=== PATIENT | female | born 2005 | race Caucasian/White ===

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

== ENCOUNTER 2023-06-29 23:06 | Emergency (ER) | payer OTHER, SELFPAY ==
--- NOTE | ~2023-06-29 | CT_ITS ---
IMPRESSION: 1. Small volume of pelvic ascites, likely an exudate. 2. Fat stranding in greater omentum on the left, consistent with inflammation v ersus edema. EXAMINATION: CT abdomen pelvis w con DATE: 06/30/2023 04:22 INDICATION: Right lower quadrant abdominal pain. Diarrhea. TECHNIQUE: Computed tomography (CT) of the abdomen and pelvis was performed with 100 mL Omnipaque 350 intravenous contrast. Automated exposure control and iterative reconstruction technique were employe d. The dose-length product was 434.72 mGy-cm. COMPARISON: CT abdomen and pelvis 03/16/2018 FINDINGS: The visualized portions of lung bases demonstrate minimal atelectasis. No pleural effusion. The heart size is normal. No pericardial effusion. The liver, gallbladder, spleen, pancreas, adrenal glands, and kidneys are normal. There is a small volume of pelvic ascites with peritoneal enhancemen t, likely an exudate. There is fat stranding in greater omentum on the left. There are no dilated loo ps of bowel. The appendix is normal. There are no pathologically enlarged lymph nodes. There is mild chronic anterior wedging of T11 vertebral body. IMPRESSION: 1. Small volume of pelvic ascites, likely an exudate. 2. Fat stranding in greater omentum on the left, consistent with inflammation versus edema. Reviewed, dictated and finalized at location E.
[2023-06-29 23:11] VITALS: BP 143/87; PULSE 82; RESP 16; TEMP 36.4; O2SAT 100
[2023-06-30 01:35] VITALS: BP 137/78; PULSE 68; RESP 18; O2SAT 100
[2023-06-30 02:02] VITALS: BP 107/95; O2SAT 100
[2023-06-30 02:31] VITALS: BP 117/81; PULSE 74; O2SAT 100
[2023-06-30 02:34] LABS: Basophils Percent Auto 0.3 % (0.2-1.2); Eosinophils Absolute Auto 0.1 K/mm3 (0-0.3); Hematocrit 32.8 % (37.0-47.0); Hemoglobin 10.3 g/dL (12.0-15.0); Immature Granulocyte Absolute 0.03 K/mm3 (0.00-0.031); Immature Granulocyte Percent A 0.3 % (0-0.5); Lymphocytes Absolute Auto 2.43 K/mm3 (0.9-3.2); Lymphocytes Percent Auto 26.1 % (18.3-44.2); Mean Corpuscular HGB Conc 31.4 g/dl (32-36); Mean Corpuscular Hemoglobin 27.7 pg (26-34); Mean Corpuscular Volume 88.2 fl (80-100); Mean Platelet Volume 10.7 fl (7.4-10.4); Monocytes Absolute Auto 0.6 K/mm3 (0.1-0.6); Monocytes Percent Auto 6.7 % (2.6-8.5); Neutrophils Absolute Auto 6.1 K/mm3 (1.3-6.7); Neutrophils Percent Auto 65.6 % (45.5-73.1); Platelet Count Result 316 k/mm3 (150-375); Red Blood Count 3.72 M/mm3 (4.2-5.4); Red Cell Distribution Width 14.1 % (11.5-14.5); White Blood Count 9.3 K/mm3 (4.5-10.0)
[2023-06-30 02:36] LABS: Appearance Urine Clear (Clear); Bacteria Urine None Seen /hpf; Bilirubin Urine Negative (Negative); Blood Urine Negative (Negative); Color Urine Yellow (Yellow); Glucose Urine UA Negative (Negative); Ketones Urine Negative (Negative); Leukocyte Esterase Ur Trace LEU/UL (Negative); Nitrate Urine Negative (Negative); Non Pathogenic Casts 0-2; Protein Urine Negative (Negative); RBC Urine 0-2 /hpf (0-2); Specific Grav Ur 1.018 (1.001-1.035); Squamous Epithelial Cell Urine None seen /hpf (Few); Urobilinogen Urine 0.2 mg/dL (<2.0); WBC Urine 0-5 /hpf; pH Urine 7.5 (5.0-9.0)
[2023-06-30 03:05] LABS: Add Urine Microscopic? YES
[2023-06-30 03:14] LABS: Alanine Aminotransferase 14 U/L (6-35); Albumin Level 4.2 g/dL (3.7-5.6); Alkaline Phosphatase 81 U/L (45-116); Anion Gap 10 mmol/L (8-16); Aspartate Amino Transferase 23 U/L (14-36); Bilirubin,Total 0.2 mg/dL (0.2-1.3); Blood Urea Nitrogen 12 mg/dL (8-21); Carbon Dioxide 24 mmol/L (22-30); Chloride 106 mmol/L (98-107); Estimated CRCL calculation 127 ml/min; Estimated Glomerular Filt Rate > 60; Glucose 88 mg/dL (65-110); Lipase 68 U/L (23-300); Potassium 3.8 mmol/L (3.4-5.0); Sodium 140 mmol/L (134-143)
[2023-06-30 04:20] VITALS: BP 133/80; PULSE 65; RESP 20; O2SAT 100
[2023-06-30] MEDS: ACETAMINOPHEN 500 MG TABLET 1000 MG PO (04:20)
[2023-06-30 06:06] VITALS: BP 132/76; PULSE 66; RESP 20; O2SAT 100
--- NOTE | 2023-06-30 06:12 | ED.GENADULT ---
HPI - General Adult General Chief complaint: Abdominal Pain Stated complaint: abd pain, diarrhea Time Seen by Provider: 06/30/23 01:27 History of Present Illness HPI narrative: This is a 17-year-old female presenting with chief complaint of abdominal pain and diarrhea. He says he last for 5 days she has been having crampy abdominal pain and left quadrant, nonradiating comes and goes. She has never had pain like this for there are no exacerbating alleviating factors. She denies fevers chills, nausea vomiting, chest pain or difficulty breathing. No URI symptoms. Patient has been ill with chronic abdominal pain for quite some time. She has never found a reason. Related Data Allergies Allergy/AdvReac Type Severity Reaction Status Date / Time juicy juice Allergy Mild Hives Uncoded 03/12/23 14:06 FOR[facility]LY [facility], [facility] Past Medical History Medical History Anxiety and depression PATEL (generalized anxiety disorder) HSV (herpes simplex virus) infection Hyperlipidemia Hypertension Migraines Missed ab PTSD (post-traumatic stress disorder) Family History Family History Mother Hypertension Breast cancer x 3 Thyroid cancer Father Hypertension Sibling Asthma Autistic disorder Depression Other Malignant neoplasm of prostate Social History Social History Social History: Single Years smoked: 2 Smoking status: Current every day smoker Tobacco type: e-cigarettes/vaping Second hand tobacco smoke exposure: Yes Additional smoking assessment comments: Has vaped only for the last 2 years Alcohol intake: never Substance use: never Substance use type: does not use Lack of Transportation: YES Lack of Food: Never True Current Housing: I Have Housing Concerned About Future Housing: No Difficulty Paying Gas/Electric Bills: No Difficulty Paying for Meds: No Currently Unemployed: YES Education: High School Diploma/GED Difficulty w/ Childcare or Family Care: No Living arrangements: alone Additional living arrangements comments: single Occupation/Education: occupation Gender identity (if verbalized by the patient): Female Sexual Orientation (if Verbalized by the Patient): Straight or Heterosexual Spiritual care concerns: No Course Vital Signs Vital signs: Vital Signs Temperature 97.5 F L 06/29/23 23:11 Pulse Rate 82 06/29/23 23:11 Respiratory Rate 16 06/29/23 23:11 Blood Pressure 143/87 H 06/29/23 23:11 Pulse Oximetry 100 06/29/23 23:11 Oxygen Delivery Room Air 06/29/23 23:11 Temperature 97.5 F L 06/29/23 23:11 Pulse Rate 66 06/30/23 06:06 Respiratory Rate 20 06/30/23 06:06 Blood Pressure 132/76 06/30/23 06:06 Pulse Oximetry 100 06/30/23 06:06 Oxygen Delivery Room Air 06/29/23 23:11 Medical Decision Making MDM Narrative Medical decision making narrative: -Course: 17-year-old presenting with acute on chronic abdominal pain. Lab work reassuring. CT showed some inflammation of the omentum but no other acute findings. Results were discussed with the patient. She improved after some Tylenol. Vital signs are stable. Abdominal exam is benign. Patient is comfortable going home primary care follow-up. -DDX includes but is not limited to: Colitis, gastroenteritis, IBS, colonic spasm, appendicitis, UTI -Co-morbidities complicating care: chronic abdominal, anxiety -Social determinants of health: works at [employer] with her mom -Independent interpretation of studies: laboratory studies normal. CT showed some inflammation of the omentum. -Interventions: Tylenol, Bentyl, Toradol -Shared decision making / Disposition: discharge primary care follow-up. -RX Simethicone, Bentyl, Vital Signs Vital Signs: Vital Signs Temperature 97.5 F L 06/29/23 23:11 Pulse R
[2023-06-30] MEDS: KETOROLAC 15 MG/ML VIAL (*BKC) IV PUSH (06:29)
[2023-06-30] MEDS: DICYCLOMINE HCL 10 MG CAPSULE 20 MG PO (06:29)
== END 2023-06-30 06:36 | disposition home or self-care (01) ==
PROVIDERS: Emergency Provider Emergency Medicine; PCP Family Medicine
DX: R10.9 Unspecified abdominal pain (principal); E78.5 Hyperlipidemia, unspecified; I10 Essential (primary) hypertension; F17.219 Nicotine dependence, cigarettes, with unspecified nicotine-induced disorders
CPT/HCPCS: 36415; 74177; 80053; 81001; 81025; 83690; 85025; 96374; 99284; A9270; J1885; Q9967

== ENCOUNTER 2023-07-17 15:17 | Outpatient (CLI) | payer OTHER, SELFPAY ==
[2023-07-17 16:55] LABS: HIV 1/2 Ab P24 Ag Result Negative (Negative)
[2023-07-17 17:45] LABS: Hepatitis B Surface Antigen Negative (Negative)
[2023-07-17 17:50] LABS: HAV RESULT Negative (Negative); Hepatitis B Core IgM Result Negative (Negative)
[2023-07-17 18:11] LABS: Hepatitis C Virus Antibody Reactive (Negative)
[2023-07-18 15:39] LABS: Rapid Plasma Reagin Non-Reactive (NonReactive)
[2023-07-20 14:44] LABS: Hepatitis C RNA, Quant PCR <15 IU/mL
== END 2023-07-17 15:18 | disposition home or self-care (01) ==
LOC: ANHLAB 15:18
PROVIDERS: PCP Family Medicine; Visit Provider Obstetrics & Gynecology
DX: Z11.3 Encounter for screening for infections with a predominantly sexual mode of transmission (principal)
CPT/HCPCS: 36415; 80074; 86592; 86695; 86696; 86703; 87522; G0432

== ENCOUNTER 2025-01-03 18:40 | Emergency (ER) | payer OTHER, SELFPAY ==
--- NOTE | ~2025-01-03 | XR_ITS ---
EXAMINATION: XR chest 2V Exam Date/Time: 01/03/2025 18:50 CDT HISTORY: cough Comparison: 03/16/2018. RESULT: Lines, tubes, and devices: None. Lungs and pleura: Clear. Cardiomediastinal silhouette: Stable. Other: No acute osseous or upper abdominal finding. IMPRESSION: No acute cardiopulmonary process. Reviewed, dictated and finalized at location K.
--- NOTE | ~2025-01-03 | XR_ITS ---
EXAM: XR ankle RT min 3V DATE: 01/03/2025 19:19 HISTORY: right ankle pain and swelling . COMPARISON: 03/06/2015. FINDINGS: Normal mineralization. No fracture or dislocation. No lytic or blastic lesion. Joint space s are maintained. No erosion or periosteal change. Soft tissues within normal limits. IMPRESSION: No acute osseous finding in the right ankle. Reviewed, dictated and finalized at location K.
--- OUTSIDE RECORDS SUMMARY | 2025-01-03 18:42 | XMS_ITS | Clinical Summary ---
Author Organization [facility] Address [address] [place] [id number] Care Team Providers Care Technical Services Representative Name Role Phone Annel Arceo MD Primary Care Provider Allergies No known active allergies Medications oxyCODONE (ROXICODONE) 5 mg immediate release tabletIndication s:Pain Take 1 tablet (5 mg total) by mouth every 4 (four) hours as needed for pain 10 tablet 07/23/2024 Active Active Problems Problem Noted Date Diagnosed Date Laceration of right hand wit hout foreign body, subsequent encounter 07/19/2024 Assessment & Plan (07/20/2024 3:04 PM CDT): Plastic surgery and wound care consults -pt received tdap shot -po tylenol scheduled, iv toradol and oxy 2nd and 3rd line -iv morphine for breakthrough/procedures are ordered Abscess of right hand 07/19/2024 Assessment & Plan (07/23/2024 2:02 PM CDT): -pt has purulent drainage -plastic surgery consulted - appreciate recs -no plan for inpatient I&D, signed off -TID soapy soaks -wound care consult -IV abx vanc (07/19 - 07/21) -doxycycline (07/21 - current) -wound culture growing MRSA, susceptible to doxy Immunizations Immunization Administration Dates Next Due Tdap 07/19/2024 Social History Tobacco Use Types Packs/Day Years Used Date Smoking Tobacco: Every Day Cigarettes Tobacco Cessation:Ready to Q uit: No; Counseling Given: Yes Personal Safety Answer Date Recorded Have you ever been in or are you currently in a harmful physical or emotional relationship or is someone making you feel afraid or unsafe? Denies 07/19/2024 Comments No Sex and Gender Information Value Date Recorded Sex Assigned at Not on file Legal Sex Female 7:23 PM IT INTEGRATION ARCHITECT Gender Identity Not on file Sexual Orientation Not on file Obstetrics History Last Filed Vital Signs Vital Sign Reading Time Taken Comments Blood Pressure 122/66 07/23/2024 7:48 AM CDT Pulse 72 07/23/2024 7:48 AM CDT Temperature 36.9 C (98.4 F) 07/23/2024 7:48 AM CDT Respiratory Rate 16 07/23/2024 7:48 AM CDT Oxygen Saturation 100% 07/23/2024 7:48 AM CDT Inhaled Oxygen Concentration - - Weight 66.6 kg (146 lb 12.8 oz) 07/19/2024 4:20 PM CDT Height 167.6 cm (5' 6 ) 07/19/2024 4:20 PM CDT Body Mass Index 23.69 07/19/2024 4:20 PM CDT Plan of Treatment Health Maintenance Due Date Last Done Comments Cervical Cancer Screening 2003 Depression Screening 2003 Hepatitis C Screening 2003 Pneumococcal vaccine <65 (1 of 1 - PPSV23) 2009 01/06/2005, 02/03/2004, 2003 Meningococcal B Vaccine (1 of 2 - Standard) 2019 Regular Well Visit/Exam 18-64 2021 Influenza Vaccine (#1) 2024 8, 08/28/2016, 08/03/2010, Additional history exists DTaP/Tdap/Td Vaccine (8 - Td or Tdap) 07/19/2034 07/19/2024, 07/19/2015, 10/13/2007, Additional history exists Hepatitis B Screening Completed 10/05/2004 , 2003, 2003 Varicella Vaccines Completed 05/13/2014, 10/05/2004 Meningococcal Vaccine Aged Out 07/19/2015, 014 No longer eligible based on patient's age to complete this topic HPV Vaccines Completed 07/11/2018, 05/13/2014 Insurance [facility] Advance Directives For more information, please contact: [phone] * Full Code (Latest Code Status on File) Date Activated Date Inactivated Comments 07/19/2024 1:46 PM 07/23/2024 7:24 PM Care Teams Technical Services Representative Relationship Specialty Start Date End Date Annel Arceo MD [address] [facility] [address] [place] [address] PCP - General Family Medicine 04/24/22
--- OUTSIDE RECORDS SUMMARY | 2025-01-03 18:42 | XMS_ITS | Referral Summary ---
Author Organization [facility] Address [address] [facility] [address] Care Team Providers Care Shellfish Processing Machine Tender Name Role Phone Annel Arceo MD Primary Care Provider + Source Comments [facility],non-owned Affiliates and Associated Physician Practices is amultiple site organization consisting of ambulatory clinics and hospital sitesin [place], [place], [place] and [place]. This disclosure is being madepursuant to the Care Everywhere program and may not contain all information available regarding this patient. Last updated 18.[facility] Allergies Active Allergy Reactions Criticality Noted Date Comments Food Diarrhea 02/20/2010 Juicy juice brand drinks Medications * Be aware that medications may not be up to date on this document. Alwaysverify current medications with the patient. Medication Sig Dispensed Refills Start Date End Date Status ARIPiprazole (ABILIFY) 15 MG tablet Take 15 mg by mouth once daily Active citalopram (CELEXA) 20 MG tablet Take 20 mg by mouth once daily Active HYDROcodone-acetaminop hen (NORCO) 10-325 MG tablet Take 1 tablet by mouth every 4 hours as needed for Pain Active Active Problems Problem Noted Date Diagnosed Date Snoring 12/24/2018 Assessment & Plan (12/24/2018 10:06 AM IRON ERECTOR): Caitlin has snoring with pauses and gasps. Body mass index is 33.37 kg/(m^2). Daytime sleepiness manifested by falling asleep at school and a family history consistent with obstructive sleep apnea. She has an oropharyngeal exam and body habitus that puts her at risk. Will plan diagnostic sleep study to assess disordered breathing and for limb movement. If positive will consider sleep service referral. Resolved Problems Problem Noted Date Diagnosed Date Resolved Date Cough 12/24/2018 01/21/2019 Assessment & Plan (12/24/2018 10:11 AM IRON ERECTOR): Normal exam today. She had difficulty doing pulmonary function tests. Lack of response to albuterol in past speaks against underlying asthma. Likely recurrent viral illnesses complicated by personal and passive smoke exposure. Social History Tobacco Use Types Packs/Day Years Used Date Smoking Tobacco: Every Day Cigarettes Smokeless Tobacco: Never Comments:smokes 1 cigarette a day Alcohol Use Standard Drinks/Week Comments No 0 (1 standard drink = 0.6 oz pur e alcohol) Sex and Gender Information Value Date Recorded Sex Assigned at Not on file Gender Identity Not on file Sexual Orientation Not on file Last Filed Vital Signs Vital Sign Reading Time Taken Comments Blood Pressure 124/72 04/14/2018 9:30 AM CDT Pulse 70 12/24/2018 9:19 AM IRON ERECTOR Temperature 36.4 C (97.5 F) 02/20/2010 1:00 PM CDT Respiratory Rate 20 12/24/2018 9:19 AM IRON ERECTOR Oxygen Saturation 99% 12/24/2018 9:19 AM IRON ERECTOR Inhaled Oxygen Concentration - - Weight 96.9 kg (213 lb 10 oz) 12/24/2018 9:19 AM IRON ERECTOR Height 170.4 cm (5' 7.09 ) 12/24/2018 9:19 AM CS T Body Mass Index 33.37 12/24/2018 9:19 AM IRON ERECTOR Plan of Treatment Not on file Care Teams Shellfish Processing Machine Tender Relationship Specialty Start Date End Date Annel Arceo MD [address] [place] [address] PCP - General 11/30/22
--- OUTSIDE RECORDS SUMMARY | 2025-01-03 18:42 | XMS_ITS | Clinical Summary ---
Author Organization [facility] Address [address] [place] [address] Care Team Providers Care Product Line Manager Name Role Phone Annel Arceo MD Primary Care Provider + Source Comments [facility],non-owned Affiliates and Associated Physician Practices is amultiple site organization consisting of ambulatory clinics and hospital sitesin [place], [place], [place] and [place]. This disclosure is being madepursuant to the Care Everywhere program and may not contain all information available regarding this patient. Last updated 18.[facility] Allergies Active Allergy Reactions Criticality Noted Date [...] 12/24/2018 Assessment & Plan (12/24/2018 10:06 AM SHELL SORTER): Caitlin has snoring with pauses and gasps. [...] 01/21/2019 Assessment & Plan (12/24/2018 10:11 AM SHELL SORTER): Normal exam today. She had difficulty doing pulmonary function tests. Lack of response to albuterol in past speaks against underlying asthma. Likely recurrent viral illnesses complicated by personal and passive smoke exposure. Family History Medical History Relation Name Comments Sleep Disorder - Other Father mahi COPD - Chronic Obstructive Pulmonary Disease Paternal Grandmother Relation Name Status Comments Father Paternal Grandmother Social History Tobacco Use Types Packs/Day Years [...] AM CDT Pulse 70 12/24/2018 9:19 AM SHELL SORTER Temperature 36.4 C (97.5 F) 02/20/2010 1:00 PM CDT Respiratory Rate 20 12/24/2018 9:19 AM SHELL SORTER Oxygen Saturation 99% 12/24/2018 9:19 AM SHELL SORTER Inhaled Oxygen Concentration - - Weight 96.9 kg (213 lb 10 oz) 12/24/2018 9:19 AM SHELL SORTER Height 170.4 cm (5' 7.09 ) 12/24/2018 9:19 AM CS T Body Mass Index 33.37 12/24/2018 9:19 AM SHELL SORTER Plan of Treatment Health Maintenance Due Date Last Done Comments PAP SMEAR 2003 HIV SCREENING 2018 HPV VACCINE (1 - 3-dose series) 2018 CHLAMYDIA/GONORRHEA SCREENING 2019 MENINGOCOCCAL (Group B) VACC INE (1 of 2 - Standard) 2019 HEPATITIS C SCREENING 09/15/2021 DTAP/TDAP/TD VACCINES (1 - Tdap) 2022 HEPATITIS B VACCINE (1 of 3 - 19+ 3-dose series) 2022 PNEUMOCOCCAL VACCINE (1 of 2 - PCV) 2022 COVID-19 VACCINE (1 - 2023-2 5 season) 2024 INFLUENZA VACCINE (#1) 2024 07/11/2018 DEPRESSION SCREENING 10/28/2024 ZOSTER VACCINE (1 of 2) 2053 HIB VACCINE Aged Out No longer eligi ble based on patient's age to complete this topic MENINGOCOCCAL VACCINE Aged Out No ellie seven eligible based on patient's age to complete this topic Care Teams Product Line Manager Relationship Specialty Start Date End Date Annel Arceo MD [address] [place] [address] PCP - General 11/30/22
--- OUTSIDE RECORDS SUMMARY | 2025-01-03 18:42 | XMS_ITS | Patient Health Summary ---
Author Organization [facility] Address [address] [place] [address] Care Team Providers Care Community Outreach Manager Name Role Phone Annel Arceo MD Primary Care Provider + Note from [facility],non-owned Affiliates and Associated Physician Practices is amultiple site organization consisting of ambulatory clinics and hospital sitesin [place], [place], [place] and [place]. This disclosure is being madepursuant to the Care Everywhere program and may not contain all information available regarding this patient. Last updated 18.[facility] Allergies * Food(Diarrhea) Medications * Be aware that medications may not be up to date on this document. Alwaysverify current medications with the patient. * ARIPiprazole (ABILIFY) 15 MG tablet Take 15 mg by mouth once daily * citalopram (CELEXA) 20 MG tablet Take 20 mg by mouth once daily * HYDROcodone-acetaminophen (NORCO) 10-325 MG tablet Take 1 tablet by mouth every 4 hours as needed for Pain Active Problems Problem Noted Date Diagnosed Date Snoring 12/24/2018 Resolved Problems Problem Noted Date Diagnosed Date Resolved Date Cough 12/24/2018 01/21/2019 Social History Tobacco Use Types Packs/Day Years [...] AM CDT Pulse 70 12/24/2018 9:19 AM CURVE CLEANER Temperature 36.4 C (97.5 F) 02/20/2010 1:00 PM CDT Respiratory Rate 20 12/24/2018 9:19 AM CURVE CLEANER Oxygen Saturation 99% 12/24/2018 9:19 AM CURVE CLEANER Inhaled Oxygen Concentration - - Weight 96.9 kg (213 lb 10 oz) 12/24/2018 9:19 AM CURVE CLEANER Height 170.4 cm (5' 7.09 ) 12/24/2018 9:19 AM CS T Body Mass Index 33.37 12/24/2018 9:19 AM CURVE CLEANER Procedures * LAB RESULTS ORDER(Performed 03/27/2018) * XR CERVICAL SPINE 4 OR 5VW(Performed 03/25/2018) Performed for Cervicalgia * PATHOLOGY/CYTOLOGY REPORT ORDER(Performed 02/22/2010) * GROSS + MICRO EXAM(Performed 02/20/2010) Performed for Abdominal Pain, Unspecified Site * HELICOBACTER PYLORI UREASE(Performed 02/20/2010) Performed for Abdominal Pain, Unspecified Site * US ABDOMEN COMPLETE(Performed 02/20/2010) Performed for Abdominal Pain, Generalized * LAB RESULTS ORDER(Performed 02/19/2010) * XR ABD OBSTRUCTION SERIES 2VW(Performed 11/12/2009) * URINALYSIS REFLEX TO MICROSCOPIC NO CULTURE(Performed 11/12/2009) * CULTURE URINE(Performed 11/12/2009) * INFLUENZA B ANTIGEN RAPID(Performed 11/12/2009) * INFLUENZA A ANTIGEN RAPID(Performed 11/12/2009) * VIRAL RESPIRATORY SCREEN WITH REFLEX(Performed 11/12/2009) * VIRAL CULTURE INFLUENZA(Performed 11/12/2009) * CULTURE STREP GROUP A(Performed 11/12/2009) * RSV RAPID ANTIGEN(Performed 11/12/2009) * STREP A SCREEN DIRECT(Performed 11/12/2009) * CBC W MANUAL DIFFERENTIAL(Performed 11/12/2009) * GROSS + MICRO EXAM(Performed 2003) Results * LAB RESULTS ORDER (03/27/2018 2:22 PM CDT) Only the most recent of2 resultswithin the time period is included. Narrative Joby Coreas - 03/27/2018 2:22 PM CDT Ordered by an unspecified provider. Scanned Document LAB - THERAPEUTIC DR ANUSHA MONITORING ORDERABLES * XR CERVICAL SPINE 4 OR 5VW (03/25/2018 9:08 AM CDT) Anatomical Region Laterality Modality Spine Radiographic Michell ging 03/25/2018 9:22 AM CDT Impressions 03/25/2018 11:24 AM CDT Normal cervical spine. ILuis Eduardo, have personally reviewed the images and I agree with this report. Reading Radiologist: Eric iSmpson MD on 03/25/2018 at 11:24 AM Narrative 03/25/2018 11:24 AM CDT Exam: Cervical spine AP, lateral, including flexion and extension views History: Cervicalgia Vertebral body heights, disc spaces, and alignment are normal. The predental interval is normal on extension and flexion views. The prevertebral soft tissues are not widened. Procedure Note Luis Eduardo Christine MD - 03/25/2018 Exam: Cervical spine AP, lateral, including flexion and extension views History: Cervicalgia Vertebral body heights, disc spaces, and alignment are normal. The predental interval is normal on extension and flexion views. The prevertebral soft tissues are not widened. IMPRESSION Normal cervical spine. I, Luis Eduardo Christine, have personally reviewed the images and I agree with this report. Reading Radiologist: Eric Simpson MD on 03/25/2018 at 11:24 AM Quinten Hartman MD DIAGNOSTIC IMAGING O RDERABLES * PATHOLOGY/CYTOLOGY REPORT ORDER (02/22/2010 2:10 AM CDT) Narrative 02/22/2010 2:10 AM CDT Ordered by an unspecified provider. Transcriptions Document, Scanned - 02/20/2010 12:00 AM CDT Scanned Document LAB - PATHOLOGY/CYTO LOGY ORDERABLES * GROSS + MICRO EXAM (02/20/2010 12:00 PM CDT) Only the most recent of2 resultswithin the time period is included. [facility] Clinical History [facility] Comment: The patient is a 4-year-old girl with abdominal pain who underwent upper endoscopy which was found to be normal. Patient's previous biopsy of the rectum showed no pathologic diagnosis ([id number]). Urease negative. Gross Description [facility] Comment: The specimens are received fixed in formalin in three containers for gross and microscopic examination. All containers are labeled with the patient's name, Caitlin Salguero. Specimen A, duodenum, consists of three, 3.0 mm soft, yellow-jensen tissue fragments submitted in toto as A1 . Specimen B, stomach, consists of a 4.0 mm soft, yellow-jensen tissue fragment submitted in toto as B1 . Specimen C, esophagus, consists of three soft, gonsalez-jensen tissue fragments, 3.0 mm to 4.0 mm in greatest dimension. The specimen is submitted in toto as C1 . (CT/lw) Microscopic Examination [facility] Comment: A) 3 H+E; B) 3 H+E; C) 3 H+E. Sections of the duodenum biopsy show duodenal mucosa with normal villous architecture and a normocellular lamina propria. The gastric biopsy shows intact surface epithelium and a normocellular lamina propria. The esophageal biopsy is poorly oriented. There is mild spongiosis and a few intraepithelial lymphocytes, but no intraepithelial eosinophils are seen. (CAV/ld) Diagnosis [facility] Comment: DIAGNOSIS: A) DUODENUM, BIOPSY: -NO DIAGNOSTIC ALTERATION. B) STOMACH, BIOPSY: -NO DIAGNOSTIC ALTERATION. C) ESOPHAGUS, BIOPSY: -NO DIAGNOSTIC ALTERATION. This case has been personally reviewed and interpreted by the attending (teaching) pathologist. Food And Beverage Manager Cookie Shah, [facility] Pathologist Lilly Boyer M.D. [facility] Electronically Signed By LILLY BOYER M.D. [facility] PART OF DUODENUM / Unknown 02/20/2010 12:00 PM CDT 02/20/2010 12:51 PM CDT Uriel Iniguez MD LAB - PATHOLOGY/CYTO LOGY ORDERABLES [facility] * HELICOBACTER PYLORI UREASE (02/20/2010 12:00 PM CDT) Report [facility] Comment: Final - CULTURE Negative Rapid Urease Test for Helicobacter pylori. GASTRIC ANTRAL BIOPSY SPECIMEN / Unknown 02/20/2010 12:00 PM CDT 02/20/2010 12:37 PM CDT Uriel Iniguez MD LAB - MICROBIOLOGY O RDERABLES [facility] * US ABDOMEN COMPLETE (02/20/2010 10:05 AM CDT) Anatomical Region Laterality Modality Abdomen Ultrasound 02/20/2010 11:4 3 AM CDT Narrative 02/20/2010 11:44 AM CDT Abdominal sonogram The hepatobiliary system, spleen, kidneys, pancreas, and visible retroperitoneal great vessels are normal. Diagnosis: Normal abdominal sonogram. Procedure Note Kadie Ontiveros MD - 02/20/2010 Abdominal sonogram The hepatobiliary system, spleen, kidneys, pancreas, and visible retroperitoneal great vessels are normal. Diagnosis: Normal abdominal sonogram. Uriel Iniguez MD US ORDERABLES * XR ABD OBSTR SERIES (11/12/2009 4:20 PM CURVE CLEANER) Anatomical Region Laterality Modality Abdomen Other 11/12/2009 4:20 PM CURVE CLEANER Narrative 11/13/2009 9:05 AM CURVE CLEANER Abdomen supine, upright The bowel gas pattern, solid organs, bones and soft tissue planes are normal. A few scattered air-fluid levels are present on the upright. No pathological calcification or mass effect is present. The lung bases are clear. There is no free air. Diagnosis- Ileus. Reading Radiologist- KADIE ONTIVEROS MD Releasing Radiologist- KADIE ONTIVEROS MD Released Date Time- 11/13/0906 Food And Beverage Manager- KADIE ONTIVEROS MD ARACELI MACHUCA TERESA B ORD- ARACELI CHERY- PCP- [facility]- Procedure Note Kadie Ontiveros - 11/13/2009 Abdomen supine, upright The bowel gas pattern, solid organs, bones and soft tissue planes are normal. A few scattered air-fluid levels are present on the upright. No pathological calcification or mass effect is present. The lung bases are clear. There is no free air. Diagnosis- Ileus. Reading Radiologist- KADIE ONTIVEROS MD Releasing Radiologist- KADIE ONTIVEROS MD Released Date Time- 11/13/09905 Food And Beverage Manager- KADIE ONTIVEROS MD ARACELI MACHUCA TERESA B ORD- ARACELI CHERY- PCP- [facility]- Araceli Chery MD DIAGNOSTIC IMAGING O RDERABLES * URINALYSIS ROUTINE AUTO (11/12/2009 3:55 PM CURVE CLEANER) Color UA STRAW [facility] Character UA CLEAR [facility] Specific [place] UA <=1.005 1.003 - 1.[address] [facility] pH UA 6.0 5.0 - 8.[address] [facility] Protein UA NEGATIVE Negative [facility] Glucose UA NEGATIVE Negative gm/dl [facility] Ketone UA NEGATIVE Negative [facility] Blood UA NEGATIVE Negative [facility] Bilirubin UA NEGATIVE Negative [facility] Reducing Substances UA NEGATIVE Negative % [facility] WBC UA 15-20 /HPF [facility] RBC UA 1-3 /HPF [facility] Epithelial Cell UA 1-3 /HPF [facility] Bacteria UA trace [facility] Leukocyte UA 1+ [facility] Nitrite UA NEGATIVE [facility] URINE / Unknown 11/12/2009 3 :55 PM CURVE CLEANER Araceli Chery MD LAB - URINALYSIS ORD ERABLES Performing Organization Address [facility]/ZIP Co de Phone Number [facility] * CULTURE URINE (11/12/2009 3:55 PM CURVE CLEANER) Report [facility] Comment: Final - GRAM STAIN No organisms seen CULTURE 2 colony types present at <10,000 CFU/ml No further workup performed URINE SPECIMEN OBTAINED BY CLEAN CATCH PROCEDURE / Unknown 11/12/2009 3:55 PM CURVE CLEANER Narrative Authorizing Provider Result Marilia Chery MD LAB - MICROBIOLOGY O RDERABLES Performing Organization Address [facility] Co de Phone Number [facility] * INFLUENZA B ANTIGEN RAPID (11/12/2009 2:35 PM CURVE CLEANER) Influenza B Antigen NEGATIVE for Influenza B Negative for Influenza B [facility] Viral Caution Caution-Negati ve result does not rule out Influenza. A Viral Respiratory Screen will be performed if Rapid Influenza is Negative. [facility] NASOPHARYNGEAL SWAB / Unknown 11/12/2009 2:35 PM CURVE CLEANER Narrative Authorizing Provider Result Marilia Chery MD LAB - CHEMISTRY ORDE RABWILLIAN Performing Organization Address City/[facility]/ZIP Co de Phone Number [facility] * VIRAL RESPIRATORY SCREEN WITH REFLEX (11/12/2009 2:35 PM CURVE CLEANER) Viral Respiratory Screen NEGATIVE DFA for Adenovirus, Influenza A/B, Parinfluenza 1,2,3 and RSV antigens. Negative [facility] Viral Respiratory Caution Caution - Negative DFA does not exclude the possibilty of a viral infection. [facility] NASOPHARYNGEAL SWAB / Unknown 11/12/2009 2:35 PM CURVE CLEANER Araceli Chery MD LAB - MICROBIOLOGY O RAJWINDER Performing Organization Address [facility] Co de Phone Number [facility] * VIRAL CULTURE INFLUENZA (11/12/2009 2:35 PM CURVE CLEANER) Pathologist [facility] Viral Culture Influenza No Virus Isolated No Virus Isolated [facility] NASOPHARYNGEAL SWAB / Unknown 11/12/2009 2:35 PM CURVE CLEANER Araceli Chery MD LAB - MICROBIOLOGY O RAJWINDER Performing Organization Address [facility] Co de Phone Number [facility] * STREP A SCREEN DIRECT (11/12/2009 2:35 PM CURVE CLEANER) Pathologist [facility] Strep A Rapid Rapid test NEGATIVE for Group A Beta Strep, culture to follow. [facility] ENTIRE THROAT (SURFACE REGION OF NECK) / Unknown 11/12/2009 2:35 PM CURVE CLEANER Araceli Chery MD LAB - MICROBIOLOGY O RAJWINDER Performing Organization Address [facility] Co de Phone Number [facility] * RSV RAPID ANTIGEN (11/12/2009 2:35 PM CURVE CLEANER) Pathologist [facility] RSV Antigen Rapid NEGATIVE for Respiratory Syncytial Virus Antigen Negative for RSV AG [facility] Viral Caution Caution - Negative result DOES NOT rule out RSV [facility] Comment Viral A Viral Respiratory Screen will be done on Neg Specimens. [facility] NASOPHARYNGEAL SWAB / Unknown 11/12/2009 2:35 PM CURVE CLEANER Araceli Chery MD LAB - MICROBIOLOGY O RDERABLES Performing Organization Address [facility] Co de Phone Number [facility] * INFLUENZA A ANTIGEN RAPID (11/12/2009 2:35 PM CURVE CLEANER) Influenza A Antigen NEGATIVE for Influenza A Negative for Influenza A [facility] Viral Caution Caution-Negati ve result does not rule out Influenza. A Viral Respiratory Screen will be performed if Rapid Influenza is Negative. [facility] NASOPHARYNGEAL SWAB / Unknown 11/12/2009 2:35 PM CURVE CLEANER Araceli Chery MD LAB - CHEMISTRY NICHOLAS BRODY Performing Organization Address [facility] Co de Phone Number [facility] * CULTURE STREP GROUP A (11/12/2009 2:35 PM CURVE CLEANER) Report [facility] Comment: Final - CULTURE Positive for Group A Beta Streptococci ENTIRE THROAT (SURFACE REGION OF NECK) / Unknown 11/12/2009 2:35 PM CURVE CLEANER Araceli Chery MD LAB - MICROBIOLOGY O RDERABLES Performing Organization Address [facility] Co de Phone Number [facility] * (ABNORMAL) CBC W MANUAL DIFFERENTIAL (11/12/2009 2:26 PM CURVE CLEANER) WBC 9.24 5.0 - 14.5 K/cumm [facility] RBC 4.09 3.90 - 5.30 mill/cumm [facility] Hemoglobin 11.1(L) 11.5 - 13.5 gm/dl [facility] Hematocrit 32.6(L) 34.0 - 40.0 % [facility] MCV 79.7 75.0 - 87.0 cu microns [facility] MCH 27.1 24.0 - 30.[address] [facility] MCHC 34.0 31.0 - 37.0 % [facility] RDW 14.5 % [facility] MPV 9.[address] [facility] Platelet Count 286 100 - 400 K/cumm [facility] Comment Manual Diff Done [facility] Band % Manual 14 % [facility] Neutrophils % Manual 70 20 - 70 % [facility] Lymphocytes % Manual 9(L) 16 - 70 % [facility] Monocytes % Manual 7 3 - 13 % [facility] RBC Morphology Slight Anisocytosis, Slight Poikylocytosis , Occ Ovalocytes [facility] WBC Morph Moderate Toxic Granulation, Few Vacuolation [facility] BLOOD SPECIMEN / Unknown 11/12/2009 2:26 PM CURVE CLEANER Araceli Chery MD LAB - HEMATOLOGY ORD ERABLES [facility] Care Teams Community Outreach Manager Relationship Specialty Start Date End Date Annel Arceo MD [address] [place] [address] PCP - General 11/30/22
--- OUTSIDE RECORDS SUMMARY | 2025-01-03 18:42 | XMS_ITS | Referral Summary ---
Author Organization [facility] Address [address] [place] [id number] Care Team Providers Care Wire Worker Name Role Phone Annel Arceo MD Primary [...] on file Legal Sex Female 7:23 PM HOSPITAL PHARMACY DIRECTOR Gender Identity Not on file Sexual Orientation [...] 07/19/2024 4:20 PM CDT Plan of Treatment Not on file Insurance Advance Directives For more information, please contact: [phone] * Full Code (Latest Code Status on File) Date Activated Date Inactivated Comments 07/19/2024 1:46 PM 07/23/2024 7:24 PM Care Teams Wire Worker Relationship Specialty Start Date End Date Annel Arceo MD [address] [facility] [address] [place] [address] PCP - General Family Medicine 04/24/22
--- OUTSIDE RECORDS SUMMARY | 2025-01-03 18:42 | XMS_ITS | Clinical Summary ---
Author Organization [facility] Address [address] [place] [address] Phone Care Team Providers Care Data Entry Specialist Name Role Phone Provider, None Primary Care Provider Unavailabl e Medications No known medications Social History Tobacco Use Types Packs/Day Years Used Date Smoking Tobacco: Never Assessed Comments Unknown Sex and Gender Information Value Date Recorded Sex Assigned at Not on file Legal Sex Female 11:04 PM CDT Gender Identity Not on file Sexual Orientation Not on file Last Filed Vital Signs Vital Sign Reading Time Taken Comments Blood Pressure 108/62 04/09/2024 11:18 PM CDT Pulse 86 04/09/2024 11:18 PM CDT Temperature 36.8 C (98.3 F) 04/09/2024 11:18 PM CDT Respiratory Rate 16 04/09/2024 11:18 PM CDT Oxygen Saturation 100% 04/09/2024 11:18 PM CDT Inhaled Oxygen Concentration - - Weight 63.5 kg (140 lb) 04/09/2024 11:18 PM CDT Height 167.6 cm (5' 6 ) 04/09/2024 11:18 PM CDT Body Mass Index 22.6 04/09/2024 11:18 PM CDT Plan of Treatment Not on file Insurance MEDICAID [facility] Care Teams Data Entry Specialist Relationship Specialty Start Date End Date Provider, None [place] PCP - General 04/09/24
[2025-01-03 18:44] VITALS: BP 124/72; PULSE 116; RESP 16; TEMP 36.6; O2SAT 99
--- NOTE | 2025-01-03 18:57 | ED.GENADULT ---
HPI - General Adult General Chief complaint: Upper Respiratory Infection Stated complaint: cough/eyes matting Source: patient Mode of arrival: ambulatory Limitations: no limitations History of Present Illness HPI narrative: Patient presents for evaluation of cough for the last month. She has some associated shortness of breath. She tried taking DayQuil for her symptoms without considerable improvement thereafter. She denies any fever, chills nausea, vomiting, sore throat, otalgia. The gentleman accompanying her today indicates that he thought that both of them had COVID. She smokes 1/3 ppd and also vapes. Of note, she fell down steps about two months ago and injured her right ankle. She has experienced swelling in the right ankle and calf since that time she states the swelling in her right calf today is minimal compared to this symptom she typically experiences. Her father has actually had 2 DVTs and is anticoagulated for life. I spoke with him on the phone and he is not sure whether he has a clotting disorder. It sounds like at least one of the DVT's was not provoked. She states it feels like an elephant is sitting on her chest. She is not on exogenous estrogen. Denies use of injectable drugs. She also reports a month long history of waking from sleep with her eyes being matted shut. Denies visual disturbance. She does not wear glasses or contacts. Related Data Home Medications ?Medication ?Instructions ?Recorded ?Confirmed ?Last Taken ?Type No Home Medications 10/17/23 10/17/23 Unknown History Allergies Allergy/AdvReac Type Severity Reaction Status Date / Time juicy juice Allergy Mild Hives Uncoded 01/03/25 18:49 Review of Systems Review of Systems: CONSTITUTIONAL: Denies fever, chills, or sweats. EYES: Reports waking from sleep with eyes matted shut. Denies visual disturbance ENT: Denies rhinorrhea, congestion, sore throat, or otalgia. CARDIOVASCULAR: Reports sensation of an elephant sitting on her chest. Denies palpitations RESPIRATORY: Reports cough and shortness of breath GASTROINTESTINAL: Denies abdominal pain, nausea, vomiting, or diarrhea. GENITOURINARY: Denies dysuria or hematuria. SKIN: Denies rash or itching. MUSCULOSKELETAL: Reports swelling in the right lower leg and ankle NEUROLOGIC: Denies headache, numbness, dizziness, or weakness. PSYCHIATRIC: Denies anxiety or depression. [facility] Past Medical History Medical History Anxiety and depression Encounter for screening examination for sexually transmitted disease PATEL (generalized anxiety disorder) HSV (herpes simplex virus) infection Hyperlipidemia Hypertension Migraines Missed ab PTSD (post-traumatic stress disorder) Family History Family History Mother Hypertension Breast cancer x 3 Thyroid cancer Father Hypertension Sibling Asthma Autistic disorder Depression Other Malignant neoplasm of prostate Social History Social History Social History: Single Years smoked: 2 Smoking status: Current every day smoker Tobacco type: e-cigarettes/vaping Second hand tobacco smoke exposure: Yes Additional smoking assessment comments: Has vaped only for the last 2 years Alcohol intake: never Substance use: never Substance use type: does not use Lack of Transportation: YES Lack of Food: Never True Current Housing: I Have Housing Concerned About Future Housing: No Difficulty Paying Gas/Electric Bills: No Difficulty Paying for Meds: No Currently Unemployed: YES Education: High School Diploma/GED Difficulty w/ Childcare or Family Care: No Living arrangements: alone Additional living arrangements comments: single Occupation/Education: occupation Gender identity (if verbalized by the patient): Female Sexual Orientation (if Verbalized by the Patient): Straight or Heterosexual Spiritual care concerns: No Exam Narrative: GENERAL: Well-appearing, well-nourished, and in no acute distress. HEAD: Normocephalic, atraumatic. EYES: PERRLA and EOMI. ENT: Nares clear, no rhinorrhea or epistaxis. Mucous membranes moist. Oropharynx without tonsillar hypertrophy exudate or other lesions. Bilateral TMs pearly gonsalez nonbulging NECK: Supple. No adenopathy or masses. No carotid bruits or JVD CHEST: Clear to auscultation. No respiratory distress. No wheezes rales or rhonchi HEART: Rate 105. Regular rhythm. No murmur heard. Normal peripheral pulses. ABDOMEN: Soft, nontender, nondistended, normal active bowel sounds. EXTREMITIES: Circumference of the right calf is 38 cm. Circumference of the left calf is 37 cm. SKIN: Warm, dry, no rash. NEURO: No focal deficits. Alert and oriented x3. PSYCH: Normal mood and affect. Course Course Emergency Course: This is a 19-year-old female who presented for evaluation of cough, shortness of breath, chest pain. Risk factors for DVT include family history, recent injury to the right lower extremity, and smoking. In the setting of her current symptoms and an elevated heart rate, cannot rule out PE given PERC criteria. I recommended she go to the hospital for further evaluation. She is agreeable to this plan. [facility] is her facility of choice. I contacted the ER at [facility] and spoke with nurse Verdin. She indicates that Dr. Soares will agree to accept pt for transfer there. Pt requested to be transported via private vehicle. Level of Care: Express Care Visit Vital Signs Vital signs: Vital Signs Temperature 36.6 C 01/03/25 18:44 Pulse Rate 116 H 01/03/25 18:44 Respiratory Rate 16 01/03/25 18:44 Blood Pressure 124/72 01/03/25 18:44 Pulse Oximetry 99 01/03/25 18:44 Oxygen Delivery Room Air 01/03/25 18:44 Temperature 36.6 C 01/03/25 18:44 Pulse Rate 116 H 01/03/25 18:44 Respiratory Rate 16 01/03/25 18:44 Blood Pressure 124/72 01/03/25 18:44 Pulse Oximetry 99 01/03/25 18:44 Oxygen Delivery Room Air 01/03/25 18:44 Medical Decision Making Vital Signs Vital Signs: Vital Signs Temperature 36.6 C 01/03/25 18:44 Pulse Rate 116 H 01/03/25 18:44 Respiratory Rate 16 01/03/25 18:44 Blood Pressure 124/72 01/03/25 18:44 Pulse Oximetry 99 01/03/25 18:44 Oxygen Delivery Room Air 01/03/25 18:44 Temperature 36.6 C 01/03/25 18:44 Pulse Rate 116 H 01/03/25 18:44 Respiratory Rate 16 01/03/25 18:44 Blood Pressure 124/72 01/03/25 18:44 Pulse Oximetry 99 01/03/25 18:44 Oxygen Delivery Room Air 01/03/25 18:44 Imaging Data Radiologist's impression: EXAMINATION: XR chest 2V Exam Date/Time: 01/03/2025 18:50 CDT HISTORY: cough Comparison: 03/16/2018. RESULT: Lines, tubes, and devices: None. Lungs and pleura: Clear. Cardiomediastinal silhouette: Stable. Other: No acute osseous or upper abdominal finding. IMPRESSION: No acute cardiopulmonary process. EXAM: XR ankle RT min 3V DATE: 01/03/2025 19:19 HISTORY: right ankle pain and swelling . COMPARISON: 03/06/2015. FINDINGS: Normal mineralization. No fracture or dislocation. No lytic or blastic lesion. Joint spaces are maintained. No erosion or periosteal change. Soft tissues within normal limits. IMPRESSION: No acute osseous finding in the right ankle. ECG Data EKG #1: ECG completion date: 01/03/25 ECG completion time: 19:43 Interpretation: Normal sinus rhythm, rate 95, normal axis and interval Discharge Plan Discharge Clinical Impression: Tachycardia, Chest pain, Shortness of breath Patient Disposition: Acute Care Hospital Condition: Stable Patient Language: Italian Prescriptions: No Action No Home Medications Follow-up/Referrals: PHYSICIAN,[employer] [Primary Care Provider] - Time of Disposition: 19:40
--- NOTE | 2025-01-03 19:14 | ECG_ITS ---
Test Date: 2025-01-03 19:29:17 Measurements Intervals [place] Rate: 95 P: 61 IL: 135 QRS: -7 QRSD: 86 T: 63 QT: 330 QTc: 417 Interpretive Statements SINUS RHYTHM WARNING: DATA QUALITY MAY AFFECT INTERPRETATION No previous ECG available for comparison Electronically Signed On 01-04-2025 11:24:41 CDT by Reymundo Anguiano M.D.
== END 2025-01-03 19:51 | disposition short-term general hospital (02) ==
PROVIDERS: Emergency Provider Nurse Practitioner
DX: R00.0 Tachycardia, unspecified (principal); R07.9 Chest pain, unspecified; R06.02 Shortness of breath; E78.5 Hyperlipidemia, unspecified; I10 Essential (primary) hypertension; F17.210 Nicotine dependence, cigarettes, uncomplicated; F17.290 Nicotine dependence, other tobacco product, uncomplicated; Z83.2 Family history of diseases of the blood and blood-forming organs and certain disorders involving the immune mechanism
CPT/HCPCS: 71046; 73610; 93005; 99214; G0463